=== PATIENT | male | born 1950 | race Two or more races ===

== ENCOUNTER 2018-09-12 22:44 | Inpatient (IN) | payer MEDICARE, BC ==
[~2018-09-12] VITALS: Ht 185.4 cm; Wt 102.5 kg
--- NOTE | 2018-09-12 23:00 | NUR ---
HIM ANALYSTFINAL ASSEMBLY INSPECTOR NOTE: PT ADMITTED FROM [facility] VIA [facility] ACCOMPANIED BY 2EMTS WITH ADMITTING DIAGNOSIS OF AFIB WITH RVR. PT IS ALERT AND ORIENTED X4. ABLE TO MAKE NEEDS KNOWN. NO APPARENT DISTRESS NOTED. DENIES CHEST PAIN AND SOB. PT IS AMBULATORY AND HAS AN IV ON LEFT ANTECUBITAL #20 INTACT AND PATENT, FLUSHING WELL. SINUS TACHY ON TELE MONITOR HR 106BPM. PERTINENT ASSESSMENTS DONE. SKIN IS INTACT. CALL LIGHT PLACED WITHIN REACH. KEPT CLEAN, DRY AND COMFORTABLE. ENCOURAGED TO VERBALIZE NEEDS AND CONCERNS AND TO CALL FOR ASSISTANCE IF NEEDED. SIDE RAILS UP X2. BED LOCKED AND IN LOWEST POSITION. WILL CONTINUE TO MONITOR PT.
[2018-09-12 23:07] VITALS: BP 143/99
[2018-09-12] MEDS ORDERED: HYDROCODONE/APAP 5/325MG 1 EACH TABLET PO PRN (23:30)
[2018-09-12] MEDS ORDERED: ACETAMINOPHEN 325 MG TABLET PO PRN (23:30)
[2018-09-12] MEDS ORDERED: MAG HYDROX/AL HYDROX/SIMETH 30 ML UDC PO PRN (23:30)
[2018-09-12] MEDS ORDERED: MAGNESIUM HYDROXIDE 30 ML UDC PO PRN (23:30)
[2018-09-12] MEDS ORDERED: LORAZEPAM 1 MG TABLET PO PRN (23:30)
[2018-09-12] MEDS ORDERED: TEMAZEPAM 15 MG CAPSULE PO PRN (23:30)
[2018-09-12] MEDS ORDERED: ONDANSETRON HCL/PF 4 MG/2 ML VIAL IVP PRN (23:30)
[2018-09-13] VITALS: BP 125/76
[2018-09-13 04:00] VITALS: BP 103/71
--- NOTE | 2018-09-13 06:36 | NUR ---
RAILROAD REPAIRER NOTE: NO CHANGES NOTED THROUGHOUT THE SHIFT. NO ACUTE DISTRESS NOTED. ON ROOM AIR, SATURATING WELL. NO COMPLAINTS OF PAIN OR DISCOMFORT. SINUS RHYTHM ON TELE MONITOR HR 73BPM. IV ON LEFT ANTECUBITAL #20 INTACT AND PATENT, FLUSHING WELL. KEPT CLEAN, DRY AND COMFORTABLE. SAFETY AND FALL PRECAUTIONS OBSERVED AND MAINTAINED. ALL NEEDS ATTENDED TO PROMPTLY. WILL ENDORSE TO DAY SHIFT RN FOR CONTINUITY OF CARE.
[2018-09-13 07:13] LABS: BASOPHILS % (AUTO) 0.6 % (0.0-2.0); EOSINOPHILS % (AUTO) 1.1 % (0.0-6.0); HEMATOCRIT 44 % (39-51); HEMOGLOBIN 15.4 g/dL (13.5-17.5); LYMPHOCYTES # (AUTO) 1.9 /CMM (0.8-4.8); MEAN CORPUSCULAR HGB CONC 35 g/dl (31.0-36.0); MEAN CORPUSCULAR VOLUME 94 fL (80-96); MONOCYTES # (AUTO) 0.6 /CMM (0.1-1.30); MONOCYTES % (AUTO) 8.3 % (2.0-12.0); NEUTROPHILS # (AUTO) 4.3 /CMM (1.8-8.9); PLATELET COUNT (AUTO) 235 /CMM (150-450); RED BLOOD CELL COUNT(AUTO) 4.67 MIL/uL (4.5-6.0); WHITE BLOOD COUNT (AUTO) 6.9 K/uL (4.3-11.0)
--- NOTE | 2018-09-13 07:15 | NUR ---
REHABILITATION AIDE OPENING NOTES RECEIVED PT LYING ON BED.ALERT/ORIENTED X3.ON TELE HR IS 76 WITH SR.ON ROOM AIR,TOLERATING WELL.NO SOB AND ACUTE DISTRESS NOTED.IV LINE IS ON LEFT AC G20,SITE IS CLEAN,DRY AND INTACT.SAFETY IS MAINTAINED AT ALL TIMES.BED IS IN LOW POSITION AND LOCKED.CALL LIGHT IS WITHIN REACH.WILL CONTINUE TO MONITOR THE PT CLOSELY.
[2018-09-13] MEDS ORDERED: PANTOPRAZOLE 40 MG TABLET.DR PO SCH (07:30)
[2018-09-13 07:40] LABS: CALCIUM, SERUM 8.9 mg/dL (8.5-10.1); MAGNESIUM 1.9 mg/dL (1.8-2.4); PHOSPHORUS 3.2 mg/dL (2.5-4.9); POTASSIUM 3.7 mmol/L (3.5-5.1)
[2018-09-13 07:51] LABS: THYROID STIMULATING HORMONE 2.755 uIU/mL (0.358-3.74)
[2018-09-13 08:00] VITALS: BP 112/69
[2018-09-13] MEDS ORDERED: CARVEDILOL 3.125 MG TABLET PO SCH (08:00)
[2018-09-13] MEDS ORDERED: ESOM40CA52 PO (08:06)
[2018-09-13] MEDS ORDERED: P-EP-92 PO (08:06)
[2018-09-13] MEDS ORDERED: ASPIRIN 81 MG TAB.CHEW PO SCH (09:00)
[2018-09-13 12:00] VITALS: BP 114/70
[2018-09-13 16:00] VITALS: BP 124/79
--- NOTE | 2018-09-13 16:00 | NUR ---
METALLURGY TEACHER NOTES EZEQUIEL BISWAS ORDERED TO D/C PT TO HOME AFTER CHECKING TROPONIN LEVEL.
--- NOTE | 2018-09-13 16:05 | NUR ---
NETWORKS SOFTWARE CONSULTANT NOTES TROPONIN LEVEL IS NEGATIVE.OK TO DC HOME.
--- NOTE | 2018-09-13 16:30 | NUR ---
GENERATOR MANBOILER OPERATOR HELPER NOTES PT IS READY TO GO HOME.ALL THE DISCHARGE MEDICATIONS ARE EXPLAINED TO THE PT,VERBALIZED UNDERSTOOD.IV LE FROM LEFT AC G20 IS REMOVED AND NO BLEEDING NOTED.PRESSURE DRESSING HAS APPLIED.SKIN ASSESSMENT HAS DONE AND SKIN IS INTACT.VITAL SIGNS CHECKED AND IT IS WNL.ON ROOM AIR,NO SOB AND ACUTE DISTRESS NOTED.ON TELE HR IS 70;S WITH SR.ACCOMPANIED WITH PT TO THE PARKING LOT BY WALKING AND WENT BY UBER.NO COMPLICATIONS NOTED.
== END 2018-09-13 16:30 | disposition home or self-care (01) | DRG 310 ==
LOC: TELE-TD 22:44 → TELE1 23:37
PROVIDERS: ADMIT Nurse Practitioner Acute Care; ATTEND Nurse Practitioner Acute Care
DX: I48.91 Unspecified atrial fibrillation (principal); K21.9 Gastro-esophageal reflux disease without esophagitis; Z91.81 History of falling; J30.2 Other seasonal allergic rhinitis; F10.20 Alcohol dependence, uncomplicated; I34.0 Nonrheumatic mitral (valve) insufficiency
CPT/HCPCS: 36415; 80048-TC; 80061-TC; 83735-TC; 84100-TC; 84443-TC; 84484-TC; 85025-TC; 87081-TC; 93307-TC; A6402; G0378